=== PATIENT | female | born 1990 | race Caucasian/White ===

== ENCOUNTER 2019-05-30 09:08 | Emergency (ER) | payer MEDICAID ==
[~2019-05-30] VITALS: Ht 157.5 cm; Wt 59.0 kg
[2019-05-30] MEDS ORDERED: LORAZEPAM 1MG TABLET PO ONE (09:45)
[2019-05-30] MEDS ORDERED: LEVETIRACETAM 500MG PREMIX 100 ML IV ONE (09:45)
[2019-05-30] MEDS ORDERED: KETOROLAC 60MG/2ML VIAL IM ONE (10:15)
[2019-05-30 10:50] VITALS: BP 118/75
== END 2019-05-30 10:50 | disposition home or self-care (01) ==
LOC: ER 09:08
DX: G40.909 Epilepsy, unspecified, not intractable, without status epilepticus (principal); S00.83XA Contusion of other part of head, initial encounter; Z91.14 Patient's other noncompliance with medication regimen; W01.0XXA Fall on same level from slipping, tripping and stumbling without subsequent striking against object, initial encounter; Y93.89 Activity, other specified; Y92.9 Unspecified place or not applicable
CPT/HCPCS: 81025; 96372; 96374; 99283; J1885; J1953